=== PATIENT | male | born 1965 | race Caucasian/White ===

== ENCOUNTER 2020-06-09 13:00 | Outpatient (CLI) | payer MEDICAID ==
[~2020-06-09] VITALS: Ht 172.7 cm; Wt 64.9 kg
--- NOTE | 2020-06-09 14:15 | Consultation ---
DATE OF CONSULTATION: 06/09/2020 CHIEF COMPLAINT: Ulcerative colitis. PAST MEDICAL HISTORY: 1. History of ulcerative colitis. 2. . 3. COVID positive pneumonia in March. PAST SURGICAL HISTORY: None. MEDICATIONS: None. FAMILY HISTORY: Noncontributory. SOCIAL HISTORY: The patient occasionally drinks alcohol. Remote history of tobacco, quit about seven years ago. ALLERGIES: No known drug allergies. REVIEW OF SYSTEMS: A 10-point review of systems was performed and negative. PHYSICAL EXAMINATION: VITAL SIGNS: Temperature 97.9. Vital signs stable. HEENT: Normocephalic and atraumatic. Sclerae anicteric. NECK: Supple. No evidence of obvious lymphadenopathy. CARDIOVASCULAR: Regular rate and rhythm. Plus S1 and S2. LUNGS: Clear to auscultation bilaterally. ABDOMEN: . Soft and nontender. No rebound. No guarding. No peritoneal sign. EXTREMITIES: No cyanosis, no clubbing, no edema. ASSESSMENT AND PLAN: This is a 55-year-old male with history of ulcerative colitis and recent flare up, currently not on any medication. Last colonoscopy in 2007, needs repeat colonoscopy. Plan to get schedule for colonoscopy. Antonio Mohan M.D. DR: Jose JOB#: [id number] CC:
[2020-06-10] MEDS ORDERED: TIROSINT75 MCG ORAL (11:04)
== END 2020-06-09 15:00 | disposition home or self-care (01) ==
LOC: PAN 13:00
DX: K51.90 Ulcerative colitis, unspecified, without complications (principal); Z86.19 Personal history of other infectious and parasitic diseases; Z87.891 Personal history of nicotine dependence
CPT/HCPCS: G0463